=== PATIENT | male | born 1950 | race Caucasian/White ===

== ENCOUNTER 2017-07-20 04:46 | Inpatient (IN) | payer OTHER ==
[~2017-07-20] VITALS: Ht 180.3 cm; Wt 74.4 kg
[2017-07-20 04:49] VITALS: BP 158/76
[2017-07-20] MEDS ORDERED: ALBUTEROL2.5 MG/0.1 (04:52)
[2017-07-20 05:27] LABS: ANION GAP 8 mmol/L (7-16); BUN 13 mg/dL (7-18); CALCIUM 9.4 mg/dL (8.5-10.1); CHLORIDE 101 mmol/L (98-107); CO2 31 mmol/L (21-32); CREATININE 0.8 mg/dL (0.6-1.3); GLUCOSE 151 mg/dL (70-99); POTASSIUM 4.4 mmol/L (3.5-5.1); SODIUM 140 mmol/L (136-145)
[2017-07-20 05:29] LABS: ABSOLUTE EOSINOPHILS 0.3 thou/uL (0.0-0.7); ABSOLUTE LYMPHOCYTES 1.6 thou/uL (0.8-5.3); ABSOLUTE MONOCYTES 0.7 thou/uL (0.0-1.2); BASOPHILS 0.5 %; EOSINOPHILS 3.4 %; HEMATOCRIT 45.1 % (42.0-52.0); HEMOGLOBIN 14.7 gm/dL (14.0-18.0); LYMPHOCYTES 16.4 %; MCH 33.5 pg (26.0-34.0); MCHC 32.6 g/dL (28.0-37.0); MCV 102.6 fL (80.0-100.0); MPV 9.2 fl. (7.2-11.1); NUCLEATED RBCS 0 /100WBC; PLATELET COUNT* 224 thou/uL (150-400); POLYS 72.7 %; RDW-CV 12.3 % (10.5-14.5); WBC 9.7 thou/uL (4.0-11.0)
[2017-07-20 05:38] LABS: ALBUMIN 3.5 g/dL (3.4-5.0); ALKALINE PHOSPHATASE 120 U/L (46-116); LIPASE 159 U/L (73-393); MAGNESIUM 1.8 mg/dL (1.8-2.4); NT-PRO BRAIN NAT PEPTIDE 25 pg/mL (<300); SGOT 14 U/L (15-37); SGPT 19 U/L (30-65); TOTAL BILIRUBIN 0.3 mg/dL (<0.1-1.0); TOTAL PROTEIN 6.5 g/dL (6.4-8.2); TROPONIN-I LEVEL <0.06 ng/mL (<0.06)
--- NOTE | 2017-07-20 07:04 | NUR ---
RESUMED PT CARE. PT RESTING AT BEDSIDE. PT STATES PAIN IS AT A 2 TOLERABLE FOR NOW. RELAYED WAITING ON BED.
--- NOTE | 2017-07-20 09:25 | NUR ---
ADMIT FROM ER REPORT GIVEN AND PATIENT TO FLOOR AND RM VIA CART ORIENTTED TO RM AND CALL LIGHT AND SPOUSE AT BEDSIDE
[2017-07-20 09:30] VITALS: BP 121/61
[2017-07-20 09:34] VITALS: BP 105/60
--- NOTE | 2017-07-20 10:59 | NUR ---
CM SPOKE TO THE PATIENT TO DISCUSS HOME SITUATION, DISHCARGE PLANNING, AND TO INFORM OF THE ROLE OF CM. PATIENT ALERT, ORIENTED, AND INDEPENDENT WITH ADL'S. PATIENT WORKS AND DRIVES. PATIENT RESIDES AT HOME WITH . PATIENT USES 0 DME. PATIENT HAS NO HX OF HH OR SNF. PATIENT PLANS TO RETURN HOME AT DISCHARGE. CM WILL REMAIN AVIALABLE TO ASSIST AND FOLLOW NEEDED.
[2017-07-20 11:59] VITALS: BP 109/53
[2017-07-20 15:51] VITALS: BP 119/47
--- NOTE | 2017-07-20 17:23 | NUR ---
PATIENT REMAINS A AND O X 4 NSR LUNGS CTA/DIM O2 SATS MID 90S O2 AT 2L NC PER CP PROTOCAL POOR APPETITE DENIES NAUSEA LAST BM T-1 GOOD UO, NOT SEEN YELLOW IN COLOR REPORTED UP AD MARÍA IV 20 GA R AC SL STILL WITH C/O PAIN EPIGASTRIC PAIN DESCRIBED BURNING AND PRESSURE, WORSENS WITH EATING TREATED WITH MORPHINE IVP WITH SOME RELIEF CALL LIGHT IN REACH AND INSTRUCTION GIVEN AND FOLLOWED AT BEDSIDE REF SCDS AT THIS TIME
--- NOTE | 2017-07-20 17:44 | EKG ---
[place] [address] ELECTROCARDIOGRAM REPORT Name: ANEUDY ROLON Room: [address] ADM IN [facility].#: [id number] Admission: 07/20/17 Attend Phys: Jarocho Kearney MD Discharge: Date of : 54 Report #: [id number] THIS REPORT FOR: //name// [facility] ED Test Date: 2017-07-20 Test Time: 04:50:49 Pat Name: ANEUDY ROLON Department: Room: [facility] Gender: M Crossband Layer: JESUS : 1950 Requested By: Ferny Levin Order Number: [id number] MD: Roly Pina Measurements Intervals [place] Rate: 66 P: 77 TN: 135 QRS: 80 QRSD: 126 T: 64 QT: 376 QTc: 394 Interpretive Statements Sinus rhythm Right bundle branch block Minimal ST elevation, anterior leads Baseline wander in lead(s) V2,V4 No previous ECG available for comparison Electronically Signed On 07-20-2017 17:43:51 PERSONAL SHOPPER by Roly Pina [email or web address] <ELECTRONICALLY SIGNED> By: Roly Pina MD, FAC 07/20/17 1743 0450 0450 Roly Pina MD, [facility] /EPI
--- NOTE | 2017-07-20 17:44 | EKG ---
[place] [address] ELECTROCARDIOGRAM REPORT Name: ANEUDY ROLON Room: [address] ADM IN [facility].#: [id number] Admission: 07/20/17 Attend Phys: Jarocho Kearney MD Discharge: Date of : 54 Report #: [id number] THIS REPORT FOR: //name// [facility] ED Test Date: 2017-07-20 Test Time: 06:37:23 Pat Name: ANEUDY ROLON Department: Room: [facility] Gender: Boats Renter: JESUS : 1950 Requested By: Ferny Levin Order Number: [id number] MD: Roly Pina Measurements Intervals [place] Rate: 63 P: 74 NM: 137 QRS: 76 QRSD: 128 T: 62 QT: 408 QTc: 418 Interpretive Statements Sinus rhythm with sinus arrhythmia Right bundle branch block No previous ECG available for comparison Electronically Signed On 07-20-2017 17:44:12 SAMPLE [employer]OX [employer]KER by Roly Pina [email or web address] <ELECTRONICALLY SIGNED> By: Roly Pina MD, [facility] 07/20/17 1744 6 Roly Pina MD, FACC /EPI
[2017-07-20 20:00] VITALS: BP 121/64
[2017-07-20 20:36] LABS: CHOLESTEROL 180 mg/dL (<200); HDL CHOLESTEROL 51 mg/dL (>40); LDL CHOLESTEROL 104 mg/dL (<100); TC:HDL 3.5 Ratio (Not establshd); TRIGLYCERIDE 127 mg/dL (<150); VLDL 25 mg/dL (<40)
[2017-07-20 20:37] LABS: SERUM ASSESSMENT Clear
[2017-07-21 00:09] VITALS: BP 99/52
[2017-07-21 04:02] VITALS: BP 99/52
--- NOTE | 2017-07-21 04:42 | NUR ---
PT ALERT ORIENTED. PT INITALLY STATED UPPER EPIGASTRIC PAIN. 11/11. PAIN CONTROLLED WITH MORPHINE. PT TOOK GI COCKTAIL AND STATED HE WAS PAIN FREE AFTERWARDS. TELEMETRY SHOWS SR. WILL CONTINUE TO MONITOR.
--- NOTE | 2017-07-21 07:15 | NUR ---
CHANGE OF SHIFT, BEDSIDE REPORT GIVEN ASSUMED PATIENT CARE PATIENT SEEN AT BEDSIDE IN BED AND WATCHING TV
[2017-07-21 08:00] VITALS: BP 112/60
[2017-07-21 12:00] VITALS: BP 116/63
--- NOTE | 2017-07-21 17:52 | CARDNUC ---
[place] [address] CARDIAC NUCLEAR IMAGING REPORT Name: ANEUDY ROLON Room: [address] IN [facility]#: [id number] Admission: 07/20/17 Attend Phys: Jarocho Kearney, Discharge: Date of : 54 Date of Service: 07/21/17 1752 Report #: [id number] THIS REPORT FOR: //name// APPROVED REPORT Exam: Nuclear Stress Test Indication: Chest pain Patient Location: In-Patient Room #: 226 Stress Tech: Lucina Castaneda Stress Nurse: Quita Cooper RN Ht: 5 ft 11 in Wt: 165 lbs BSA: 1.94 m2 BMI: 23.01 Medical History Medical History: HTN, Smoking Medications: Aspirin, enoxaparin Allergies: No known drug allergies Cardiac Risk Factors: Age, HTN, Current Smoker Exercise History: Sedentary Meds Held (24 hrs): NTG sl Stress Test Details Stress Test: Pharmacologic stress testing performed using 0.4 mg of regadenoson per 5 mL given IV over 10 seconds. Reason for pharmacologic stress test: physical limitation. HR Resting HR: 90 bpm Max Heart Rate (APMHR): 155 bpm Max HR Achieved: 124 bpm Target HR (85% APMHR): 131 bpm % of APMHR: 80 Recovery HR: 99 bpm BP Resting BP: 117/68 mmHg Max BP: 110/63 mmHg ECG Resting ECG: Sinus Rhythm, RBBB Stress ECG: Sinus Rhythm, RBBB ST Change: None Arrhythmia: None Recovery ECG: Sinus Rhythm, RBBB Recovery ST Change: [place] [address] CARDIAC NUCLEAR IMAGING REPORT Name: ANEUDY ROLON Room: [address]#: [id number] Admission: 07/20/17 Attend Phys: Jarocho Kearney, Discharge: Date of : 54 Date of Service: 07/21/17 1752 Report #: [id number] Recovery Arrhythmia: None Clinical Reason for Termination: Completed protocol Stress Symptoms: none Exercise duration: 0 min sec Exercise capacity: 1.0 METs The patient had no significant symptoms with Lexiscan infusion. Stress ECG Conclusion The baseline 12-lead elect cardiac exam showed sinus rhythm with right bundle-branch block. There were no significant ST segment abnormalities noted. EKGs obtained during and post Lexiscan infusion showed sinus rhythm with right bundle-branch block with no significant ST segment changes when compared to baseline. There were no stress-induced arrhythmias. NM EXAM: Myocardial Perfusion REST/STRESS Imaging Protocol: Rest Tc-99m/Stress Tc-99m 1 day Resting Data Rest SPECT myocardial perfusion imaging was performed in supine position 30 minutes following the intravenous injection of 12.0 mCi of Tc-99m Sestamibi. Time of rest injection: 1330 Time of rest imagin The images were gated to evaluate regional wall motion and calculate left ventricular ejection fraction. Administration Route: IV Administration Site: Right AC Pharmacologic Stress Pharmacologic stress test was performed by injecting Regadenoson 0.4 mg IV push followed by the intravenous injection of 32.0 mCi of Tc-99m Sestamibi. Time of stress injection: 1500 Time of stress imagin Administration Route: IV Administration Site: Left Arm Heart Rate at time of stress injection: 124 bpm. Gated Stress SPECT was performed 10 minutes after stress injection. The images were gated to evaluate regional wall motion and calculate left ventricular ejection fraction. Prone [place] [address] CARDIAC NUCLEAR IMAGING REPORT Name: ANEUDY ROLON Room: [address]#: [id number] Admission: 07/20/17 Attend Phys: Jarocho Kearney, Discharge: Date of : 54 Date of Service: 07/21/17 1752 Report #: [id number] Study Quality Study: Good Artifact: Mild Diaphragmatic artifact Study Data At rest, the left ventricular ejection fraction was 59%.. Post stress, the left ventricular ejection was 57%.. TID = 1.06. Perfusion Supine images obtained at rest and post Lexiscan stress show a moderate region of photopenia involving the inferior wall consistent with diaphragmatic attenuation artifact. Prone imaging post Lexiscan stress show uniform uptake of the radioisotope throughout the myocardium without defect. No other significant defects are identified. Wall Motion Normal left ventricular wall motion. Nuclear Conclusion ECG Findings: negative for ischemia Clinical Findings: negative for ischemia Nuclear Findings: negative for ischemia Exercise Capacity: not assessed Left Ventricular Function: normal Risk Study: low Myocardial perfusion images show no defects to suggest infarct or ischemia. The photopenia noted in the inferior wall on supine imaging is consistent with diaphragmatic attenuation artifact. Gated study showed normal left ventricular systolic function. This is a low risk study. <Conclusion> The baseline 12-lead elect cardiac exam showed sinus rhythm with right bundle-branch block. There were no significant ST segment abnormalities noted. EKGs obtained during and post Lexiscan infusion showed sinus rhythm with right bundle-branch block with no significant ST segment changes when compared to baseline. There were no stress-induced arrhythmias. <ELECTRONICALLY SIGNED> By: Roly Pina MD, FACC 07/21/171751 51 51 Roly Pina MD, FACC /INF
[2017-07-21 20:00] VITALS: BP 102/54
[2017-07-21 21:07] LABS: GLYCOHEMOGLOBIN (HGB A1C) 5.7 % (4.8-5.6)
[2017-07-21 23:42] VITALS: BP 115/57
--- NOTE | 2017-07-21 23:57 | NUR ---
PT A/OX4, RA, SR BBB ON THE MONITOR, REPORTS FREE FROM PAIN/SOA, REPORTED NO PAIN AFTER EATING DINNER TODAY, UP AD MARÍA, WAS AT BED SIDE FOR A WHILE, FALL PRECAUTIONS IN PLACE, CALL LIGHT IN REACH, MEDS/ASSESSMENT PER CHARTING, VSS, WILL CONT TO MONITOR.
[2017-07-22 03:37] VITALS: BP 98/52
--- NOTE | 2017-07-22 07:20 | NUR ---
CHANGE OF SHIFT, BEDSIDE REPORT GIVEN ASSUMED PATIENT CARE PATIENT SEEN AT BEDSIDE, IN BED AND WATCHING TV
[2017-07-22 08:00] VITALS: BP 137/83
[2017-07-22] MEDS ORDERED: NEXIUM40 MG PO (08:23)
[2017-07-22 12:10] VITALS: BP 137/83
[2017-07-22 12:44] VITALS: BP 97/59
--- NOTE | 2017-07-22 13:21 | NUR ---
PATIENT DCD TO HOME IV AND HEART MONITOR REMOVED PERSONAL BELONGINGS RETURNED DC INFORMATION GIVEN AND SIGNED COPIES GIVEN PATIENT ESCORTED OUT GOOD CONDITION TO WAITING CAR AND SPOUSE
== END 2017-07-22 13:15 | disposition home or self-care (01) | DRG 391 ==
LOC: M.ERS 04:46 → M.2W 05:59 → M.TBA-ER 05:59 → M.2W 09:21
PROVIDERS: Emergency Medicine Emergency Medical Services; Internal Medicine; ADMIT Internal Medicine
DX: K29.00 Acute gastritis without bleeding (principal); J15.9 Unspecified bacterial pneumonia; J20.9 Acute bronchitis, unspecified; J45.909 Unspecified asthma, uncomplicated; I10 Essential (primary) hypertension; F17.210 Nicotine dependence, cigarettes, uncomplicated; Z82.49 Family history of ischemic heart disease and other diseases of the circulatory system

== ENCOUNTER → 2020-04-08 | Outpatient (CLI) | payer OTHER ==
[~2020-04-08] MED LIST: ALBUTEROL2.5 MG/0.1; NEXIUM40 MG PO
== END ==
LOC: M.LAB 05:28
PROVIDERS: ATTEND Anesthesiology
DX: E87.6 Hypokalemia (principal)